=== PATIENT | male | born 1955 | race Caucasian/White ===

== ENCOUNTER 2019-02-01 21:20 | Emergency (ER) | payer MEDICARE ==
[~2019-02-01] VITALS: Ht 165.1 cm; Wt 93.6 kg
[~2019-02-01 21:20] MED LIST: ARTANE 2MG2 MG PO; ASPIRIN 32325 MG/TA1 PO; ASPIRIN 81M81 MG/TA2 PO; BLOOD PRESSURE PILL; CARVEDILOL6.25 MG PO; CELEBREX200 MG PO; CEPHALEXIN500 M1 PO; CIALIS5 MG PO; COMTAN 200MG T200 MG PO; COREG 6.256.25 MG/TA PO; GLUCOPHAGE500 MG/TAB PO; LIP PO; LIPITOR 80MG80 MG PO; LISINOPRIL20 MG PO; LISINOPRIL5 MG PO; LOPRESSOR 225 MG/TAB PO; METFORMIN500 MG PO; MICARDIS 40MG40 MG PO; MICARDIS HCT 121 TAB PO; MIRAPEX0.25 MG PO; MIRAPEX1.5 MG PO; NEUPRO4 MG/24 HR TD; NIASPAN1000 MG PO; NORCO 325 MG-51 TAB PO; NORCO 325 MG-7.1 TAB PO; PLAVIX 75MG TAB75 MG PO; POTASSIUM CH2 MEQ/ML PO; PRINIVIL10 MG PO; PRINIVIL20 MG PO; REQUIP2 MG PO; SCOPOLAMINE TD; SINEMET 25-1001 TAB PO; SINEMET 25/101 UDTAB PO; SINEMET CR1 UDTAB.S1 PO; STALEVO 100 251 TAB PO; VIAGRA50 MG PO; VITAMIN D1000 IU PO; VITAMIN E1000 U/CAP PO; VOLTAREN75 MG PO; ZESTRIL 10MG10 MG PO; ZESTRIL 20MG TA20 MG PO; ZOCOR 40MG40 MG PO; ZOFRAN 4MG T4 MG/TAB PO; [UNRECOGNIZED DRUG - OTHER]
[2019-02-01 21:26] VITALS: BP 110/61; TEMP 98.1
[2019-02-01 22:10] VITALS: PULSE 76
== END 2019-02-01 22:13 | disposition home or self-care (01) ==
LOC: COL.ER 21:20
DX: S61.412A Laceration without foreign body of left hand, initial encounter (principal); I25.10 Atherosclerotic heart disease of native coronary artery without angina pectoris; G20 Parkinson's disease; I10 Essential (primary) hypertension; E11.9 Type 2 diabetes mellitus without complications; W18.30XA Fall on same level, unspecified, initial encounter; Y92.009 Unspecified place in unspecified non-institutional (private) residence as the place of occurrence of the external cause

== ENCOUNTER 2019-02-11 09:25 | Emergency (ER) | payer MEDICARE ==
[2019-02-11 09:43] VITALS: BP 141/79; PULSE 76; TEMP 96.9
== END 2019-02-11 09:49 | disposition home or self-care (01) ==
LOC: COL.ER 09:25
DX: S61.012D Laceration without foreign body of left thumb without damage to nail, subsequent encounter (principal); X58.XXXD Exposure to other specified factors, subsequent encounter

== ENCOUNTER 2022-03-12 10:12 | Emergency (ER) | payer MEDICARE ==
[~2022-03-12] VITALS: Ht 162.6 cm; Wt 81.8 kg
[2022-03-12 11:26] LABS: BASO # 0.1 K/mm3 (0.0-0.2); EOS # 0.5 K/mm3 (0.0-0.7); EOS % 4.7 % (0.0-4.0); GRAN # 7.2 K/mm3 (1.4-6.5); GRAN % 74.2 % (42.2-75.2); HEMATOCRIT 44.9 % (42.0-52.0); HEMOGLOBIN 15.1 g/dl (13.5-18.0); LYMPH # 1.3 K/mm3 (1.2-3.4); LYMPH % 13.5 % (20.0-51.0); MEAN CELL VOLUME 91 fl (80.0-100.0); MEAN CORPUSCULAR HEMOGLOBIN 31 pg (27-31); MEAN CORPUSCULAR HGB CONC 34 g/dl (33.0-37.0); MEAN PLATELET VOLUME 8.9 fl (7.4-10.4); MONO # 0.6 K/mm3 (0.1-0.6); MONO % 6.2 % (1.7-9.3); PLATELET COUNT 195 K/mm3 (130-400); RED BLOOD COUNT 4.91 M/mm3 (4.20-5.60); REDCELL DISTRIBUTION WIDTH-CV 13.8 % (11.5-14.5)
[2022-03-12 11:32] LABS: INR 1.4 (0.8-3.0); PROTHROMBIN TIME 15.4 SECONDS (9.7-12.8)
[2022-03-12 11:42] LABS: ALANINE AMINOTRANSFERASE 12 U/L (0-55); ALBUMIN 3.7 gm/dL (3.4-4.8); ALKALINE PHOSPHATASE 109 U/L (40-150); ANION GAP 12 mmol/L (7-16); AST,SGOT 19 U/L (5-34); BILIRUBIN,TOTAL 1.7 mg/dL (0.2-1.2); BLOOD UREA NITROGEN 16 mg/dL (8-26); CALCIUM 8.7 mg/dL (8.4-10.2); CARBON DIOXIDE 24 mmol/L (23-31); CHLORIDE 106 mmol/L (98-107); GLUCOSE 89 mg/dL (70-99); POTASSIUM 4.2 mmol/L (3.5-4.5); SODIUM 142 mmol/L (136-145); TOTAL PROTEIN 6.8 gm/dL (6.2-8.1)
[2022-03-12 11:52] LABS: TROPONIN-I < 0.010 ng/mL (0.00-0.033)
[2022-03-12 12:37] LABS: COLLECTION METHOD CATHETER
[2022-03-12 12:42] LABS: MUCOUS Present (NOT PRESENT); PH 6 (5-8); SQUAMOUS EPITHELIAL 0-2 /hpf (0-10); URINE APPEARANCE Clear (CLEAR/HAZY); URINE BACTERIA Rare /hpf (NONE SEEN); URINE BILIRUBIN Negative (NEGATIVE); URINE BLOOD Negative (NEGATIVE); URINE COLOR Yellow (YELLOW); URINE GLUCOSE Negative (NEGATIVE); URINE KETONE Trace (NEGATIVE); URINE LEUKOCYTE ESTERASE Negative (NEGATIVE); URINE NITRATE Negative (NEGATIVE); URINE PROTEIN(semi-quant) Negative (NEGATIVE); URINE RBC 0-2 /hpf (0-2); URINE UROBILINOGEN >=4.0 (NEGATIVE)
[2022-03-12 14:53] VITALS: BP 139/74; PULSE 68; TEMP 98.2
== END 2022-03-12 14:53 | disposition home or self-care (01) ==
LOC: COL.ER 10:12
PROVIDERS: Physician Assistant
DX: G20 Parkinson's disease (principal); F02.80 Dementia in other diseases classified elsewhere, unspecified severity, without behavioral disturbance, psychotic disturbance, mood disturbance, and anxiety; Z20.822 Contact with and (suspected) exposure to COVID-19
CPT/HCPCS: J7030

== ENCOUNTER → 2023-12-09 | Outpatient (REF) | payer MEDICARE ==
[~2023-12-09] MED LIST changes: +AMOXICILLIN 8751 TAB PO; +DEBROX OT; +DULCOLAX S10 MG/SUPP RC; +GOOD NEIGH1200 MG/15 PO; +IMODIUM A-D2 MG PO; +KLONOPIN 1MG1 MG PO; +MIRALAX PA17 GM/Dose PO; +MYLANTA 150 ML150 M1 PO; +NAMENDA 10MG TA10 MG PO; +NOURIANZ40 MG PO; +PRIL40 PO; +RAZADYNE8 MG PO; +REVIA 50MG TABL50 MG PO; +SALONPAS1 EACH TP; +SYMMETREL100 M1 PO; +TESSALON P100 MG/CAP PO; +TYLENOL 8 HR PO; +TYLENOL SU650 MG/SUP RC; +VOLTAREN GEL 1%1 TU TP; +ZANAFLEX2 MG PO
[2023-12-09 13:47] LABS: ALBUMIN 3.4 gm/dL (3.4-4.8); CALCIUM 8.6 mg/dL (8.4-10.2); CHOLESTEROL RISK RATIO 3.7; CREATININE, serum 0.95 mg/dL (0.72-1.25); POTASSIUM 4.5 mmol/L (3.5-4.5); THYROID STIMULATING HORMONE 3.072 uIU/mL (0.350-4.940); TOTAL PROTEIN 6.3 gm/dL (6.2-8.1)
[2023-12-09 13:49] LABS: BASO # 0.1 K/mm3 (0.0-0.2); BASO % 1.1 % (0.0-2.0); EOS # 0.3 K/mm3 (0.0-0.7); EOS % 4.1 % (0.0-4.0); GRAN # 5.2 K/mm3 (1.4-6.5); GRAN % 69.8 % (42.2-75.2); HEMATOCRIT 44.4 % (42.0-52.0); HEMOGLOBIN 14.7 g/dl (13.5-18.0); LYMPH # 1.3 K/mm3 (1.2-3.4); LYMPH % 17.9 % (20.0-51.0); MEAN CELL VOLUME 92 fl (80.0-100.0); MEAN CORPUSCULAR HEMOGLOBIN 31 pg (27-31); MEAN CORPUSCULAR HGB CONC 33 g/dl (33.0-37.0); MEAN PLATELET VOLUME 9.1 fl (7.4-10.4); MONO # 0.5 K/mm3 (0.1-0.6); MONO % 6.4 % (1.7-9.3); PLATELET COUNT 199 K/mm3 (130-400); RED BLOOD COUNT 4.81 M/mm3 (4.20-5.60); REDCELL DISTRIBUTION WIDTH-CV 14.8 % (11.5-14.5)
== END ==
LOC: ZCOL.LAB 13:30
DX: G20.B1 Parkinson's disease with dyskinesia, without mention of fluctuations (principal); D50.0 Iron deficiency anemia secondary to blood loss (chronic); E78.00 Pure hypercholesterolemia, unspecified; E11.610 Type 2 diabetes mellitus with diabetic neuropathic arthropathy

== ENCOUNTER 2024-03-21 23:24 | Inpatient (IN) | payer MEDICARE ==
[~2024-03-21] VITALS: Ht 165.1 cm; Wt 75.6 kg
[~2024-03-21 23:24] MED LIST changes: -GAS AID MAXIMU125 MG PO; -LASIX 20MG TABL20 MG PO; -MUCINEX 60600 MG/TA1 PO; -MYRBETR50MG PO; -ZANAFLEX CAPSULE2 MG PO
[2024-03-21] MEDS ORDERED: Ondansetron 4 MG/2 ML VIAL IV ONE (23:30)
[2024-03-21] MEDS ORDERED: LASIX 20MG TABL20 MG PO (23:45)
[2024-03-21] MEDS ORDERED: MYRBETR50MG PO (23:50)
[2024-03-21] MEDS ORDERED: MUCINEX 60600 MG/TA1 PO (23:50)
[2024-03-21] MEDS ORDERED: PRIL40 PO (23:52)
[2024-03-21] MEDS ORDERED: GAS AID MAXIMU125 MG PO (23:52)
[2024-03-21] MEDS ORDERED: SINEMET 25/101 UDTAB PO (23:53)
[2024-03-21] MEDS ORDERED: ZANAFLEX CAPSULE2 MG PO ×2 (23:57)
[2024-03-22] VITALS (8 sets, daily range): BP systolic 92–122; BP diastolic 49–76; PULSE 69–86; TEMP 97.7–98.1
[2024-03-22 00:07] LABS: BASO % 0.5 % (0.0-2.0); EOS % 0.2 % (0.0-4.0); GRAN # 7.5 K/mm3 (1.4-6.5); HEMATOCRIT 47.4 % (42.0-52.0); HEMOGLOBIN 16.4 g/dl (13.5-18.0); LYMPH # 0.7 K/mm3 (1.2-3.4); LYMPH % 7.3 % (20.0-51.0); MEAN CELL VOLUME 88 fl (80.0-100.0); MEAN CORPUSCULAR HEMOGLOBIN 31 pg (27-31); MEAN CORPUSCULAR HGB CONC 35 g/dl (33.0-37.0); MEAN PLATELET VOLUME 8.6 fl (7.4-10.4); MONO # 0.6 K/mm3 (0.1-0.6); MONO % 6.7 % (1.7-9.3); PLATELET COUNT 158 K/mm3 (130-400); RED BLOOD COUNT 5.38 M/mm3 (4.20-5.60); REDCELL DISTRIBUTION WIDTH-CV 13.2 % (11.5-14.5)
[2024-03-22 00:21] LABS: ALANINE AMINOTRANSFERASE 34 U/L (0-55); ALBUMIN 3.3 g/dL (3.4-4.8); ALKALINE PHOSPHATASE 340 U/L (40-150); ANION GAP 13 mmol/L (7-16); AST,SGOT 366 U/L (5-34); BILIRUBIN,TOTAL 3.7 mg/dL (0.2-1.2); BLOOD UREA NITROGEN 18 mg/dL (8-26); CHLORIDE 103 mEq/L (98-107); CREATININE, serum 1.03 mg/dL (0.72-1.25); GLUCOSE 197 mg/dL (70-99); POTASSIUM 3.8 mEq/L (3.5-4.5); SODIUM 141 mEq/L (136-145); TOTAL PROTEIN 7.1 g/dl (6.2-8.1); TROPONIN-I < 0.010 ng/mL (0.00-0.033)
[2024-03-22 00:22] LABS: LIPASE > 4800 U/L (8-78)
[2024-03-22] MEDS ORDERED: NS 100 ML IV SCH (02:12)
[2024-03-22] MEDS ORDERED: Iohexol 300 - 100 ML VIAL IV ONE (02:12)
[2024-03-22] MEDS ORDERED: Pantoprazole 40 MG in NS 10 ML IV ONE (05:15)
[2024-03-22] MEDS ORDERED: Albuterol/Ipratropium 3 MG-0.5 MG/3 ML Neb Soln IH PRN (05:30)
[2024-03-22] MEDS ORDERED: HYDROmorphone 0.5 MG/0.5 ML SYRINGE IV PRN (05:30)
[2024-03-22] MEDS ORDERED: Ondansetron 4 MG/2 ML VIAL IV PRN (05:30)
[2024-03-22] MEDS ORDERED: NS 1,000 ML IV SCH (05:30)
--- NOTE | 2024-03-22 06:20 | NUR ---
Up to the floor from ER- transferred to bed with slide board, VSS, Fall Risk completed, bed alarm on- .
[2024-03-22] MEDS ORDERED: ZANAFLEX CAPSULE2 MG PO (07:08)
[2024-03-22] MEDS ORDERED: Benzonatate 100 MG CAP PO PRN (07:15)
[2024-03-22] MEDS ORDERED: Acetaminophen 325 MG TAB PO PRN (07:15)
[2024-03-22] MEDS ORDERED: tiZANidine 4 MG TAB PO PRN (07:15)
[2024-03-22] MEDS ORDERED: Lidocaine 4% Topical Patch TP PRN (07:30)
[2024-03-22] MEDS ORDERED: tiZANidine 4 MG TAB PO SCH ×2 (08:00→21:00)
[2024-03-22] MEDS ORDERED: Albuterol/Ipratropium 3 MG-0.5 MG/3 ML Neb Soln IH SCH (08:00)
--- NOTE | 2024-03-22 08:00 | NUR ---
PATIENT AWAKE AND ALERT, SITTING UP IN BED. CALL LGIHT WITHIN REACH. FALL PRECAUTIONS IN PLACE. BED ALARM ON. HOLDEN CARE PROVIDED AND LINEN CHANGED.
[2024-03-22 08:51] LABS: BASO % 0.4 % (0.0-2.0); EOS # 0.1 K/mm3 (0.0-0.7); GRAN # 6.6 K/mm3 (1.4-6.5); GRAN % 79.7 % (42.2-75.2); HEMATOCRIT 47.7 % (42.0-52.0); HEMOGLOBIN 15.9 g/dl (13.5-18.0); LYMPH % 11.9 % (20.0-51.0); MEAN CELL VOLUME 90 fl (80.0-100.0); MEAN CORPUSCULAR HEMOGLOBIN 30 pg (27-31); MEAN CORPUSCULAR HGB CONC 33 g/dl (33.0-37.0); MEAN PLATELET VOLUME 8.5 fl (7.4-10.4); MONO # 0.6 K/mm3 (0.1-0.6); MONO % 6.8 % (1.7-9.3); PLATELET COUNT 162 K/mm3 (130-400); RED BLOOD COUNT 5.28 M/mm3 (4.20-5.60); REDCELL DISTRIBUTION WIDTH-CV 13.3 % (11.5-14.5)
[2024-03-22 08:57] LABS: INR 1.4 (0.8-3.0); PROTHROMBIN TIME 15.1 SECONDS (9.7-12.8)
[2024-03-22] MEDS ORDERED: guaiFENesin 200 MG TAB PO SCH (09:00)
[2024-03-22] MEDS ORDERED: Memantine 10 MG TAB PO SCH (09:00)
[2024-03-22] MEDS ORDERED: Pantoprazole 40 MG in NS 10 ML IV SCH (09:00)
[2024-03-22] MEDS ORDERED: Mirabegron ER 50 MG TAB PO SCH (09:00)
[2024-03-22] MEDS ORDERED: clonazePAM 1 MG TAB PO SCH (09:00)
[2024-03-22] MEDS ORDERED: guaiFENesin ER 600 MG **** subs to guaiFENesin 200 MG PO SCH (09:00)
[2024-03-22] MEDS ORDERED: Patient's Own Medication Item PO SCH (09:00)
[2024-03-22 09:07] LABS: ALBUMIN 3.2 g/dL (3.4-4.8); BILIRUBIN,TOTAL 3.5 mg/dL (0.2-1.2); CREATININE, serum 1.05 mg/dL (0.72-1.25); POTASSIUM 3.7 mEq/L (3.5-4.5); TOTAL PROTEIN 6.9 g/dl (6.2-8.1)
[2024-03-22 11:17] LABS: CHOLESTEROL RISK RATIO 2.9; MAGNESIUM 1.8 mg/dL (1.6-2.6); PHOSPHOROUS 2.3 mg/dL (2.3-4.7)
--- NOTE | 2024-03-22 13:35 | NUR ---
SW met with patient to complete intake. Patient provides he resides at [facility]. Next of kin is spouse is Tasneem iRvera [phone]. Patient provides he obtains total care from [facility] staff, PCP is Dr. De La Garza and pharmacy is the one [facility] utilizes. Patient provides that DPOA/HC is spouse, and plans to return back to [facility] upon discharge. SW will continue to follow. Discharge plan: return to [facility]
[2024-03-22] MEDS ORDERED: Methyl Salicylate/Menthol Cream 85 GM TUBE TP SCH (14:00)
[2024-03-22 17:09] LABS: COLLECTION METHOD CATHETER
[2024-03-22 17:16] LABS: URINE APPEARANCE CLEAR (CLEAR/HAZY); URINE BLOOD NEGATIVE (NEGATIVE); URINE COLOR Dark Yellow (YELLOW); URINE GLUCOSE NEGATIVE (NEGATIVE); URINE KETONE TRACE (NEGATIVE); URINE NITRATE NEGATIVE (NEGATIVE); URINE PROTEIN(semi-quant) 1+ (NEGATIVE)
--- NOTE | 2024-03-22 18:00 | NUR ---
PATIENT AWAKE AND ALERT, SITTING UP IN BED. PATIENT REPOSTIONED AND HOLDEN CARE PROVIDED. PATIENTS CALL LIGHT WTIHIN REACH. FALL PRECAUTIONS IN PLACE.
--- NOTE | 2024-03-22 19:23 | NUR ---
bedside shift report complete. patients dpoa at bedside. patients dpoa was rude with staff because we do not have patients paperwork from his previous vist on the chart. she voiced irritation because she "asumed" we would have it available. I informed her we did not recieve his code status paperwork or dpoa paperworko from [facility] and that SW will be here in the am to assist with her needs.
[2024-03-22] MEDS ORDERED: Carbidopa/Levodopa CR 25-100MG TAB PO SCH (21:00)
--- NOTE | 2024-03-22 21:30 | NUR ---
Patient resting in bed. Denies any pain at this time. Needs met. Assessment complete. IV in right AC flushes easliy with no complications. Repositioned patient in bed to patient comfort. Call light and personal items in reach. Bed in low position and bed alarm on.
--- NOTE | 2024-03-22 21:45 | NUR ---
Nurse Callahan from [facility] called to get an update on the patient. Nurse updated. Recieved the number for [facility] for future updates of if the patient would like anything brought to the hospital for him. [facility]: [phone]
[2024-03-23] VITALS (13 sets, daily range): BP systolic 101–145; BP diastolic 56–81; PULSE 72–83; TEMP 97.6–99.1
--- NOTE | 2024-03-23 06:00 | NUR ---
Patient resting in bed. Denies any pain or needs at this time. No changes over night. Call light and personal items in reach. Bed in low position and bed alarm on.
--- NOTE | 2024-03-23 08:05 | NUR ---
Consult to Dr. Stewart called at this time and notified of patients status. All questions answered.
[2024-03-23 08:28] LABS: BASO % 0.3 % (0.0-2.0); EOS # 0.3 K/mm3 (0.0-0.7); GRAN % 79.3 % (42.2-75.2); HEMATOCRIT 40.3 % (42.0-52.0); LYMPH % 10.9 % (20.0-51.0); MEAN CELL VOLUME 90 fl (80.0-100.0); MEAN CORPUSCULAR HEMOGLOBIN 30 pg (27-31); MEAN CORPUSCULAR HGB CONC 34 g/dl (33.0-37.0); MEAN PLATELET VOLUME 8.6 fl (7.4-10.4); MONO # 0.6 K/mm3 (0.1-0.6); MONO % 6.2 % (1.7-9.3); PLATELET COUNT 130 K/mm3 (130-400); RED BLOOD COUNT 4.47 M/mm3 (4.20-5.60); REDCELL DISTRIBUTION WIDTH-CV 13.3 % (11.5-14.5)
[2024-03-23 08:30] LABS: HEMOGLOBIN 13.6 g/dl (13.5-18.0)
[2024-03-23 08:46] LABS: BILIRUBIN,TOTAL 2.2 mg/dL (0.2-1.2); CALCIUM 8.2 mg/dL (8.4-10.2); CREATININE, serum 0.88 mg/dL (0.72-1.25); POTASSIUM 3.9 mEq/L (3.5-4.5); TOTAL PROTEIN 5.8 g/dl (6.2-8.1)
--- NOTE | 2024-03-23 10:20 | NUR ---
pt a&ox4 resting in bed. meds given whole w applesauce. vss. pt denies pain. pt incontinent of urine, total bed change provided w flora care. fluids infusing into left hand. pt has difficulty communicating. pt repositioned for comfort, off bony prominences. call light in reach. fall precautions in place.
--- NOTE | 2024-03-23 11:04 | NUR ---
Veterinary X Ray Operator faxed clinical updates to Dania at [facility].
--- NOTE | 2024-03-23 11:08 | NUR ---
Initial visit; Patient appears to be non-verbal, Medical Scientific Officer asked if he would like prayer and patient indicated that he would not like prayer today. Medical Scientific Officer will keep patient in her prayers.
[2024-03-23] MEDS ORDERED: LR 1,000 ML IV SCH (21:30)
--- NOTE | 2024-03-23 21:30 | NUR ---
pt awake resting in bed, at bedside. brought patients belongings from [facility] including tablet, hearing aides, rivet sorter, pants and a shirt. pt denies pain. pt incontinent of urine, flora care provided. new IV started to left hand. fall precautions in place. call light in reach.
[2024-03-24] VITALS (19 sets, daily range): BP systolic 100–163; BP diastolic 55–80; PULSE 62–97; TEMP 97.6–98.5
--- NOTE | 2024-03-24 00:15 | NUR ---
Resumed cares from [facility]. Patient resting in bed, eyes closed, looks comfortable.
--- NOTE | 2024-03-24 02:34 | NUR ---
Patient repositioned to his right side, noted contracted legs, heel protectors on, oriented to time, doesn't know where he is at, reoriented the patient, knows his date of , assessed at this time, denies pain or discomfort, reports he didn't noticed that he pulled his IV out, restarted IV to right wrist, tolerated well, denies further needs, will continue to monitor.
--- NOTE | 2024-03-24 06:35 | NUR ---
Repositioned patient to his left side, denies further needs.
[2024-03-24 06:44] LABS: BASO % 0.5 % (0.0-2.0); EOS # 0.3 K/mm3 (0.0-0.7); EOS % 3.3 % (0.0-4.0); GRAN # 5.8 K/mm3 (1.4-6.5); GRAN % 77.3 % (42.2-75.2); HEMATOCRIT 40.4 % (42.0-52.0); HEMOGLOBIN 13.8 g/dl (13.5-18.0); LYMPH # 0.9 K/mm3 (1.2-3.4); LYMPH % 12.1 % (20.0-51.0); MEAN CELL VOLUME 90 fl (80.0-100.0); MEAN CORPUSCULAR HEMOGLOBIN 31 pg (27-31); MEAN CORPUSCULAR HGB CONC 34 g/dl (33.0-37.0); MEAN PLATELET VOLUME 8.8 fl (7.4-10.4); MONO # 0.5 K/mm3 (0.1-0.6); MONO % 6.4 % (1.7-9.3); PLATELET COUNT 134 K/mm3 (130-400); RED BLOOD COUNT 4.51 M/mm3 (4.20-5.60)
[2024-03-24 07:09] LABS: ALBUMIN 2.9 g/dL (3.4-4.8); BILIRUBIN,TOTAL 1.8 mg/dL (0.2-1.2); CALCIUM 8.6 mg/dL (8.4-10.2); CREATININE, serum 0.86 mg/dL (0.72-1.25); POTASSIUM 3.6 mEq/L (3.5-4.5)
--- NOTE | 2024-03-24 09:40 | NUR ---
Assessment complete. Pt repositioned to right side. Heel protectors on bilaterally. BLE contractured- pillow placed. NPO for cholecystectomy later today. Pt usually takes medications whole with applesauce. HIPOLITO Uriarte notified that medications are being held due to NPO status for surgery later today. No new orders rec'd. IVF infusing to RFA as ordered. No s/s IV related complications. Fall precautions in place.
--- NOTE | 2024-03-24 11:25 | NUR ---
Education Associate contacted Dania phan [facility] and faxed clinical updates.
[2024-03-24] MEDS ORDERED: Indocyanine Green 6.25 MG in Water For Injection,Sterile 1.25 ML IV SCH (13:00)
--- NOTE | 2024-03-24 15:35 | NUR ---
Pt to OR via bed at approximately 1530 for cholecystectomy. Last blood sugar check 81. Incontinent cares provided prior to departure. Pre Op check list completed. LR infusing to right wrist at TKO. IV site without s/s complications. Denies pain. brought in DPOA and DNR paperwork. This nurse gave all paperwork to the social work Khushi. Contacted Dr. Perez to inform of patient's DNR wishes and inform her that paperwork was provided by family. Requested code status be updated in patient's chart.
[2024-03-24] MEDS ORDERED: fentaNYL 50 MCG/ML 5 ML VIAL ONE (16:02)
[2024-03-24] MEDS ORDERED: Vecuronium 10 MG VIAL IV ONE (16:02)
[2024-03-24] MEDS ORDERED: NS 10 ML IV ONE (16:02)
[2024-03-24] MEDS ORDERED: Lidocaine PF 2% (20 MG/ML) 5 ML VIAL ONE (16:03)
--- NOTE | 2024-03-24 16:05 | NUR ---
Family provided copy of Advanced Directive and DNR form to be placed on patient's chart.
[2024-03-24] MEDS ORDERED: dexAMETHasone 10 MG/ML VIAL ONE (16:16)
[2024-03-24] MEDS ORDERED: ePHEDrine 50 MG/ML VIAL ONE (16:24)
[2024-03-24] MEDS ORDERED: fentaNYL 50 MCG/ML 1 ML SYRINGE/VIAL [PACU/SDC ONLY] IV PRN (16:30)
[2024-03-24] MEDS ORDERED: Ondansetron 4 MG/2 ML VIAL IV PRN (16:30)
[2024-03-24] MEDS ORDERED: HYDROmorphone 1 MG/1 ML SYRINGE [PACU/SDC ONLY] IV PRN (16:30)
[2024-03-24] MEDS ORDERED: Bacteriostatic Sodium Chloride 0.9% 30 ML Multi-Dose VIAL IV ONE (17:00)
[2024-03-24] MEDS ORDERED: Iohexol 350 - 100 ML VIAL BILE DUCT ONE (17:00)
[2024-03-24] MEDS ORDERED: Ondansetron 4 MG/2 ML VIAL ONE (17:11)
[2024-03-24] MEDS ORDERED: Topical Skin Adhesive 1 EACH (1 ML) TOP ONE (17:16)
--- NOTE | 2024-03-24 18:15 | NUR ---
Pt returns to room s/p cholecystectomy. Lap sites x5 CDI. Pt denies pain or nausea. at bedside. VSS- see flowsheet.
--- NOTE | 2024-03-24 20:00 | NUR ---
Bedside report given to Yumi Singleton RN. Pt continues to deny pain or needs.
--- NOTE | 2024-03-24 23:03 | NUR ---
Shift assessment complete. Patient reporting pain 4/10 in abdomen. Denies any shortness of breath or chest pain. Call light is within reach. Bed locked and in low position.
[2024-03-25 00:30] VITALS: BP_SYST 105
[2024-03-25 03:10] VITALS: BP 117/65; PULSE 84; TEMP 97.5
[2024-03-25 04:48] VITALS: BP_SYST 117
[2024-03-25 06:53] LABS: BASO % 0.2 % (0.0-2.0); EOS % 0.3 % (0.0-4.0); GRAN # 7.9 K/mm3 (1.4-6.5); GRAN % 84.6 % (42.2-75.2); HEMOGLOBIN 14.9 g/dl (13.5-18.0); LYMPH # 0.7 K/mm3 (1.2-3.4); LYMPH % 7.5 % (20.0-51.0); MEAN CELL VOLUME 90 fl (80.0-100.0); MEAN CORPUSCULAR HEMOGLOBIN 31 pg (27-31); MEAN CORPUSCULAR HGB CONC 34 g/dl (33.0-37.0); MONO # 0.6 K/mm3 (0.1-0.6); MONO % 6.8 % (1.7-9.3); PLATELET COUNT 173 K/mm3 (130-400); RED BLOOD COUNT 4.88 M/mm3 (4.20-5.60); REDCELL DISTRIBUTION WIDTH-CV 13.1 % (11.5-14.5)
[2024-03-25 07:00] LABS: ALBUMIN 2.9 g/dL (3.4-4.8); BILIRUBIN,TOTAL 1.4 mg/dL (0.2-1.2); CALCIUM 9.3 mg/dL (8.4-10.2); CREATININE, serum 0.88 mg/dL (0.72-1.25); POTASSIUM 3.9 mEq/L (3.5-4.5); TOTAL PROTEIN 6.9 g/dl (6.2-8.1)
[2024-03-25] MEDS ORDERED: NS 500 ML IV SCH (20:22)
[2024-03-26 08:00] VITALS: BP 107/67; PULSE 76; TEMP 98.2
[2024-03-26 09:00] VITALS: BP_SYST 117
[2024-03-26 12:00] VITALS: BP 106/60; BP_SYST 117; PULSE 77; TEMP 98.1
--- NOTE | 2024-03-26 14:53 | NUR ---
Patient alert and oriented at baseline. Complains of hip pain, scheduled topical gel administered per orders. Tolerating food and fluids well. Denies concerns. Discharge orders obtained, patient picked up by [facility] transportation at 1400. Bed bath provided to patient prior to getting dressed. Belongings packed in bag and sent with patient. Discharge packet handed to transportation. [facility] Report called to LELO Lopez at [facility].
--- NOTE | 2024-03-26 16:33 | NUR ---
Curtain Cleaner faxed clinial updates to Dania at [facility] who advised they can accept today. Transport time set for 1400. SW faxed handwritten discharge orders as the windows server support technician was down at time of discharge. JULISSA contacted patient's , Tasneem and notified her of discharge. Discharge Plan: [facility]
== END 2024-03-26 14:00 | DRG 440 ==
LOC: COL.ER 23:24 → MEDICAL 03-22 05:28
PROVIDERS: Emergency Medicine; Nurse Practitioner Family; Physician Assistant; ADMIT Hospitalist
DX: K85.90 Acute pancreatitis without necrosis or infection, unspecified (principal)
CPT/HCPCS: C9113; J1100; J1170; J1650; J2405; J2543; J2704; J3010; J7030; J7040; J7120; Q9967

== ENCOUNTER → 2024-03-21 | Outpatient (REF) | payer MEDICARE ==
[~2024-03-21] MED LIST changes: +GAS AID MAXIMU125 MG PO; +LASIX 20MG TABL20 MG PO; +MUCINEX 60600 MG/TA1 PO; +MYRBETR50MG PO; +ZANAFLEX CAPSULE2 MG PO
[2024-03-21 22:19] LABS: BASO % 0.3 % (0.0-2.0); EOS # 0.1 K/mm3 (0.0-0.7); EOS % 0.8 % (0.0-4.0); GRAN # 9.6 K/mm3 (1.4-6.5); GRAN % 85.5 % (42.2-75.2); HEMATOCRIT 51.4 % (42.0-52.0); HEMOGLOBIN 16.8 g/dl (13.5-18.0); LYMPH # 0.8 K/mm3 (1.2-3.4); LYMPH % 6.9 % (20.0-51.0); MEAN CELL VOLUME 92 fl (80.0-100.0); MEAN CORPUSCULAR HEMOGLOBIN 30 pg (27-31); MEAN CORPUSCULAR HGB CONC 33 g/dl (33.0-37.0); MEAN PLATELET VOLUME 8.8 fl (7.4-10.4); MONO # 0.7 K/mm3 (0.1-0.6); MONO % 6.2 % (1.7-9.3); PLATELET COUNT 177 K/mm3 (130-400); RED BLOOD COUNT 5.59 M/mm3 (4.20-5.60); REDCELL DISTRIBUTION WIDTH-CV 13.4 % (11.5-14.5)
[2024-03-21 22:27] LABS: ALBUMIN 3.5 g/dL (3.4-4.8); BILIRUBIN,TOTAL 2.9 mg/dL (0.2-1.2); CALCIUM 9.2 mg/dL (8.4-10.2); CREATININE, serum 1.11 mg/dL (0.72-1.25); POTASSIUM 3.7 mEq/L (3.5-4.5); TOTAL PROTEIN 7.4 g/dl (6.2-8.1)
== END ==
LOC: ZCOL.LAB 22:11
PROVIDERS: Internal Medicine
DX: R10.9 Unspecified abdominal pain (principal); R73.09 Other abnormal glucose

== ENCOUNTER → 2024-07-24 | Outpatient (REF) | payer MEDICARE ==
[~2024-07-24] MED LIST changes: +GAS AID MAXIMU125 MG PO; +LASIX 20MG TABL20 MG PO; +MUCINEX 60600 MG/TA1 PO; +MYRBETR50MG PO; +ZANAFLEX CAPSULE2 MG PO
== END ==
LOC: ZCOL.LAB 12:42
DX: E11.610 Type 2 diabetes mellitus with diabetic neuropathic arthropathy (principal)